=== PATIENT | female | born 1935 | race Caucasian/White ===

== ENCOUNTER 2020-03-29 09:22 | Emergency (ER) | payer MEDICARE | END 2020-03-29 16:24 | disposition other institution (70) | LOC: ER1 09:22 | DX: S52.125A Nondisplaced fracture of head of left radius, initial encounter for closed fracture (principal); S52.615A Nondisplaced fracture of left ulna styloid process, initial encounter for closed fracture; S52.512A Displaced fracture of left radial styloid process, initial encounter for closed fracture; S62.112A Displaced fracture of triquetrum [cuneiform] bone, left wrist, initial encounter for closed fracture; S00.03XA Contusion of scalp, initial encounter; R07.81 Pleurodynia; W10.9XXA Fall (on) (from) unspecified stairs and steps, initial encounter; Y92.009 Unspecified place in unspecified non-institutional (private) residence as the place of occurrence of the external cause; Z79.01 Long term (current) use of anticoagulants | CPT/HCPCS: 29125; 70450; 71045; 71111; 73090; 73110; 96374; 96375; 99284; J2270; J2405 ==

== ENCOUNTER → 2020-05-05 | Outpatient (CLI) | payer MEDICARE | LOC: KOH-I 15:13 | DX: G81.91 Hemiplegia, unspecified affecting right dominant side (principal) | CPT/HCPCS: 70450 ==

== ENCOUNTER → 2020-08-01 | Outpatient (CLI) | payer MEDICARE | LOC: KOH-I 10:29 | DX: M25.511 Pain in right shoulder (principal); M19.011 Primary osteoarthritis, right shoulder | CPT/HCPCS: 73030 ==

== ENCOUNTER → 2020-09-17 | Outpatient (CLI) | payer MEDICARE | LOC: CT 12:33 | DX: R10.32 Left lower quadrant pain (principal); R10.84 Generalized abdominal pain; K57.30 Diverticulosis of large intestine without perforation or abscess without bleeding; N28.1 Cyst of kidney, acquired; K76.0 Fatty (change of) liver, not elsewhere classified; R19.7 Diarrhea, unspecified | CPT/HCPCS: 36415; 82565; Q9965 ==

== ENCOUNTER → 2020-10-07 | Outpatient (CLI) | payer MEDICARE | LOC: EXRD 13:00 | DX: R94.6 Abnormal results of thyroid function studies (principal); Z78.0 Asymptomatic menopausal state | CPT/HCPCS: 76536; 77080 ==

== ENCOUNTER 2021-08-20 15:07 | Emergency (ER) | payer MEDICARE ==
[2021-08-20 16:36] LABS: HEMOGLOBIN 12.5 gm/dl (12.3-15.3); RED BLOOD COUNT 4.3 M/UL (4.00-5.10)
[2021-08-20 17:16] LABS: BUN/CREATININE RATIO 28 (0-10)
== END 2021-08-20 20:56 | disposition home or self-care (01) ==
LOC: ER1 15:07
PROVIDERS: Physician Assistant
DX: M25.512 Pain in left shoulder (principal); R07.81 Pleurodynia; E11.9 Type 2 diabetes mellitus without complications; I10 Essential (primary) hypertension; W19.XXXA Unspecified fall, initial encounter; Y92.009 Unspecified place in unspecified non-institutional (private) residence as the place of occurrence of the external cause
CPT/HCPCS: 70496; 70498; 71111; 73030; 73060; 80053; 81001; 82550; 82553; 84484; 85025; 99284; Q9965